=== PATIENT | male | born 1995 | race African-American/Black ===

== ENCOUNTER 2017-03-01 21:05 | Emergency (ER) | payer BC ==
[~2017-03-01] VITALS: Ht 182.9 cm; Wt 133.9 kg
[~2017-03-01 21:05] MED LIST: ATARAX,VISTARIL25 MG PO; PREDNISONE10 M1 PO; TIMOPTIC-0100 DROP/1 LEFT EYE
[2017-03-02 00:11] VITALS: BP 143/92
== END 2017-03-02 00:15 | disposition home or self-care (01) ==
LOC: EME 21:05
DX: L30.9 Dermatitis, unspecified (principal); J02.9 Acute pharyngitis, unspecified; Z88.0 Allergy status to penicillin
CPT/HCPCS: 87651 90; 99281; 99284